=== PATIENT | female | born 1975 | race Caucasian/White ===

== ENCOUNTER 2017-11-24 06:02 | Day surgery (SDC) | payer BC ==
[2017-11-20 09:23] LABS: BASOPHILS % (AUTO) 0.4 % (0.0-2.0); EOSINOPHILS # (AUTO) 0.3 K/uL (0-0.4); EOSINOPHILS % (AUTO) 3.9 % (0.0-4.0); HEMATOCRIT 45.6 % (36-48); HEMOGLOBIN 15.2 g/dL (12.0-16.0); LYMPHOCYTES # (AUTO) 2.7 K/uL (2.5-16.5); LYMPHOCYTES % (AUTO) 33.5 % (20.5-51.1); MEAN CORPUSCULAR HEMOGLOBIN 30 pg (27-31); MEAN CORPUSCULAR HGB CONC 33 g/dL (33-37); MEAN CORPUSCULAR VOLUME 88.5 fL (80-94); MONOCYTES # (AUTO) 0.7 K/uL (0.8-1.0); MONOCYTES % (AUTO) 8.4 % (1.7-9.3); NEUTROPHILS # (AUTO) 4.3 K/uL (1.8-7.7); NEUTROPHILS % (AUTO) 53.8 % (42.2-75.2); PLATELET COUNT (AUTO) 209 K/uL (140-450); RED BLOOD CELL COUNT(AUTO) 5.15 MIL/uL (4.20-5.40); RED CELL DISTRIBUTION WIDTH 13.1 % (11.6-13.7)
[2017-11-20 09:51] LABS: ALBUMIN 4.1 g/dL (3.4-5.0); ANION GAP 13.9 (8-16); CARBON DIOXIDE 26.6 mmol/L (21-32); CREATININE 0.7 mg/dL (0.6-1.3); POTASSIUM 3.5 mmol/L (3.5-5.1); TOTAL BILIRUBIN 0.4 mg/dL (0.0-1.0)
[~2017-11-24] VITALS: Ht 160 cm; Wt 72.1 kg
[2017-11-24] MEDS ORDERED: DEXAMETHASONE 4 MG/ML VIAL IVP ONE ×2 (07:24→08:35)
[2017-11-24] MEDS ORDERED: ONDANSETRON 4 MG/2 ML VIAL IVP ONE ×2 (07:25→08:35)
[2017-11-24] MEDS ORDERED: SEVOFLURANE 250 ML BTL INH ONE ×2 (07:25→08:35)
[2017-11-24] MEDS ORDERED: PROPOFOL 200 MG/20 ML VIAL IV ONE ×2 (07:25→08:35)
[2017-11-24] MEDS ORDERED: MIDAZOLAM 2 MG/2 ML VIAL ONE (07:30)
[2017-11-24] MEDS ORDERED: MEPERIDINE 50 MG/ML SYR ONE (07:31)
[2017-11-24] MEDS ORDERED: fentaNYL 0.05 MG/ML VIAL ONE (07:31)
[2017-11-24] MEDS ORDERED: BUPIVACAINE-MPF 0.25% 30 ML VIAL INJ ONE (07:32)
[2017-11-24] MEDS ORDERED: LACTATED RINGERS 1,000 ML IV SCH (08:04)
[2017-11-24] MEDS ORDERED: diphenhydrAMINE 50 MG/ML VIAL IVP PRN (08:05)
[2017-11-24] MEDS ORDERED: ONDANSETRON 4 MG/2 ML VIAL IVP PRN (08:05)
[2017-11-24] MEDS ORDERED: HYDROmorphone PFS 2 MG/ML SYR IVP PRN ×2 (08:05→08:30)
[2017-11-24] MEDS ORDERED: MEPERIDINE 25 MG/ML SYR IVP PRN (08:05)
[2017-11-24] MEDS ORDERED: MORPHINE SULFATE 4 MG/ML SYR IV PRN (08:30)
[2017-11-24] MEDS ORDERED: MORPHINE SULFATE 4 MG/ML SYR IVP PRN (08:30)
[2017-11-24] MEDS ORDERED: ONDANSETRON 4 MG/2 ML VIAL IV PRN (08:30)
[2017-11-24] MEDS ORDERED: HYDROcodone/APAP 5/325 MG 1 TAB TAB PO PRN (08:30)
== END 2017-11-24 09:55 | disposition home or self-care (01) ==
LOC: MDS 06:02 → MMU 06:02 → MDS 09:55
PROVIDERS: ATTEND Surgery
DX: D24.2 Benign neoplasm of left breast (principal); N63.20 Unspecified lump in the left breast, unspecified quadrant; I10 Essential (primary) hypertension; E78.5 Hyperlipidemia, unspecified; Z80.3 Family history of malignant neoplasm of breast; Z90.710 Acquired absence of both cervix and uterus; Z98.890 Other specified postprocedural states
CPT/HCPCS: 19120; 36415; 71045; 80053; 81025; 85025; 93005; J0690; J1100; J2250; J2405; J2704; J3010; J3490; J7060; J7120; J2175; J7030